=== PATIENT | female | born 1955 | race Caucasian/White ===

== ENCOUNTER 2018-12-14 11:12 | Observation (INO) ==
[~2018-12-14 11:12] MED LIST: ACETAMINOPHEN 500 MG TABLET PO ONE; CELECOXIB 200 MG CAPSULE PO ONE; LIDOCAINE W/ SODIUM BICARB 0.5 ML SYR ONE; LIDOCAINE W/ SODIUM BICARB 0.5 ML SYR SUBD ONE; Lactated Ringers 1,000 ML PRIMARY IV ONE; Nasal Sanitizer POPSWAB ampule 3 AMP (Nozin) PREOP DOSE ENOS SCH; PANTOPRAZOLE 40 MG TABLET PO ONE; ceFAZolin Inj 2gm (Premix) 2 GM/50 ML BAG IV ONE
[2018-12-14] MEDS ORDERED: PANTOPRAZOLE 40 MG TABLET PO ONE (11:30)
[2018-12-14] MEDS ORDERED: ACETAMINOPHEN 500 MG TABLET PO ONE (11:30)
[2018-12-14] MEDS ORDERED: CELECOXIB 200 MG CAPSULE PO ONE (11:30)
[2018-12-14] MEDS: Lactated Ringers 1,000 ML PRIMARY IV SCH ×2 (12:00→18:07)
[2018-12-14] MEDS ORDERED: ONDANSETRON 4 MG/2 ML VIAL IVP PRN (12:36)
[2018-12-14] MEDS ORDERED: LIDOCAINE W/ SODIUM BICARB 0.5 ML SYR SUBD PRN ×2 (12:36→16:29)
[2018-12-14] MEDS ORDERED: fentaNYL Inj 100 MCG/2 ML VIAL IVP PRN ×2 (12:36→16:29)
[2018-12-14] MEDS ORDERED: Meperidine Inj 50 MG/ML CARPUJECT IVP PRN (12:36)
[2018-12-14] MEDS ORDERED: ePHEDrine Inj 50 MG/ML AMP IVP PRN (12:36)
[2018-12-14] MEDS ORDERED: PROMETHAZINE 25 MG/1 ML VIAL IM PRN ×2 (12:36→19:00)
[2018-12-14] MEDS ORDERED: PROPOFOL 10 MG/1 ML (200 MG/20 ML) VIAL IV ONE (12:43)
[2018-12-14] MEDS ORDERED: ROCURONIUM 10 MG/1 ML - 5 ML VIAL IVP ONE (12:44)
[2018-12-14] MEDS ORDERED: fentaNYL Inj 250 MCG/5 ML VIAL ONE (12:47)
[2018-12-14] MEDS ORDERED: BUPivacaine Inj 0.25% PF - 10ml vial ONE (12:59)
[2018-12-14] MEDS ORDERED: TRANEXAMIC ACID 1,000 MG / 10 ML VIAL ONE (14:51)
[2018-12-14] MEDS ORDERED: Sodium Chloride 0.9% vial 20 ML ONE (15:08)
[2018-12-14] MEDS ORDERED: BUPivacaine Liposome/PF (Exparel) Inj 20ml vial INFIL ONE (15:09)
[2018-12-14] MEDS ORDERED: KETOROLAC 30 MG/1 ML VIAL ONE (15:24)
[2018-12-14] MEDS ORDERED: ONDANSETRON 4 MG/2 ML VIAL ONE ×2 (15:24→17:03)
[2018-12-14] MEDS ORDERED: BACITRACIN 0.9 GM PACKET OINT TOPICAL ONE (15:46)
[2018-12-14] MEDS ORDERED: Lactated Ringers 1,000 ML PRIMARY IV ONE (16:10)
--- NOTE | 2018-12-14 16:20 | ORTHO.OP ---
- - -: See Dictated Operative Report
--- NOTE | 2018-12-14 16:28 | CRNA.PROGR ---
Anesthesia Recovery Phase I - Post Anesthesia Evaluation Patient's Condition on Arrival in Phase I: Stable Pain Level: 6
--- NOTE | 2018-12-14 16:28 | CRNA.PROGR ---
Anesthesia Time - Procedure/Recovery Time Start Date: 12/14/18 End Date: 12/14/18 Anesthesia : Time In: 14:23 Anesthesia : Time Out: 16:23 Anesthesia : Total Time: 120 - Total Anesthesia Time Total Anesthesia Time (minutes): 120 - Other Weight: 86.636 kg Height: 5 ft 1 in Body Mass Index (BMI): 36.1 Physical Status: P2 Anesthesia Type: General Anesthesia : ET
[2018-12-14] MEDS ORDERED: HYDROmorphone 2 MG/1 ML IVP PRN (16:29)
[2018-12-14] MEDS ORDERED: MORPHINE SULFATE 2 MG/1 ML IVP PRN (16:29)
[2018-12-14] MEDS: HYDROcodone-APAP 7.5 MG-325 MG TABLET PO PRN (18:48)
[2018-12-14] MEDS: ONDANSETRON 4 MG/2 ML VIAL IVP PRN (21:11)
[2018-12-15] MEDS: HYDROcodone-APAP 7.5 MG-325 MG TABLET PO PRN ×4 (09:52→21:47)
--- NOTE | 2018-12-15 11:10 | PTI REPORT ---
Thank you for the referral of Ping Dick. She was seen on 12/15/18 for an inpatient evaluation status post right hip abductor repair. SUBJECTIVE: The patient is a 63-year-old female. PAST MEDICAL HISTORY: Past medical history can be found in the patient's medical record. OBJECTIVE FINDINGS: Bed mobility: The patient was able to perform bed mobility independently from supine to sit. Transfers: The patient was able to transfer from sit to stand with contact guard assist. Ambulation: The patient ambulated 30 feet with four wheeled walker, weight- bearing as tolerated on the right. She needed constant cueing to maintain toe touch weight-bearing. The patient also needs to use the breaks on her walker to maintain toe touch weight-bearing. ASSESSMENT: The patient is a 63-year-old female who is status post right hip abductor repair. The patient would do better with a front wheeled walker or a pick-up walker in the therapist's opinion. This would help her to maintain toe touch weight-bearing without constant verbal cueing. Problem List: Dependent mobility Dependent ambulation Loss of motion Pain Physical Therapy Goals: To be met by discharge from inpatient: Patient will be independent with all bed mobility and transfers. Patient will be able to ambulate 50 feet with walker, toe touch weight-bearing on the right. Patient will be able to ascend and descend two stairs safely with contact guard, maintaining toe touch weight-bearing with a hand rail and crutch or cane. TREATMENT PLAN: Patient will be seen B.I.D during the week and one time per day over the weekend as an inpatient for gait training, bed mobility, transfer training, and stair training. INITIAL TREATMENT: Treatment today consisted of the initial evaluation activities only. The patient did have her abduction brace on for entire treatment. JAMIE
[2018-12-15] MEDS: ONDANSETRON 4 MG/2 ML VIAL IVP PRN ×2 (12:38→17:59)
[2018-12-15] MEDS ORDERED: CYCLOBENZAPRINE 10 MG TABLET PO PRN (12:55)
--- NOTE | 2018-12-15 15:55 | ORTHO.PROG ---
Last Taken Vital Signs: Vital Signs - Last Taken Temperature 99 F 12/15/18 12:58 Pulse Rate 106 H 12/15/18 12:58 Respiratory Rate 16 12/15/18 12:58 Blood Pressure 96/59 12/15/18 12:58 Pulse Ox 93 12/15/18 12:58 Subjective: Patient reports having continued pain in the right hip around the incision. She is having increased pain with ambulation. She is also having nausea. Denies any vomiting. Denies any calf pain, CP, SOB, F/C. Objective: On exam, Prevena dressing is intact holding suction. Negative calf tenderness. NV intact. AROM of the right lower extremity without difficulties. Assessment: POD 1 s/p right hip abductor tendon repair with continued pain and nausea. Plan: * nausea: zofran follow-up by phenergan if needed * continue percocet for pain will also try flexeril to see if that helps * TTWB with walker and brace * DVT ppx: discharge home with portable SCDs * Leave Prevena on until first PO appointment * Follow-up with Ortho in 1 week as scheduled * discharge home once cleared by PT
--- NOTE | 2018-12-15 16:14 | PT.PROG ---
Progress Note Progress Note: S. Patient stated that she is in a lot of pain this afternoon, however agreed to perform stair training. O. Patient ambulated 15 feet to the wheelchair and was wheeled to the stair well where she ascended and descended 4 stairs. Patient was unable to ambulate back to her room. She transferred back to bed where she was left at the edge of bed with alarm and call light. A. Patient tolerated ambulation and stair training poor, she was in a lot of pain and was very shaky after performing stair training, she would benefit from 1 to 2 more sessions of therapy to increase confidence with transfers, ambulation and stair training. P. Continue POC.
[2018-12-16] MEDS: HYDROcodone-APAP 7.5 MG-325 MG TABLET PO PRN (05:10)
[2018-12-16 10:57] VITALS: BP 129/70; RESP 19; TEMP 97.7; O2SAT 97
--- NOTE | 2018-12-16 11:48 | PT.PROG ---
Progress Note Progress Note: S. patient stated she is feeling much better today compared to yesterday. O. Patient ambulated 20 feet to the wheelchair and was wheeled to the stair well where she ascended and descended 11 stairs and was wheeled back to her room where she ambulated 10 feet back to her bed where she was left at the edge of bed with nursing. A. Patient tolerated stair training much better today, she was able to complete all stairs with contact guard assist. P. Patient has met all goals at this time.
== END 2018-12-16 12:58 | disposition home or self-care (01) ==
LOC: OR 11:12 → MED/SURG 11:12 → OPS 11:13
PROVIDERS: ADMIT Orthopaedic Surgery; ATTEND Orthopaedic Surgery